=== PATIENT | male | born 1975 | race African-American/Black ===

== ENCOUNTER 2021-02-04 20:54 | Emergency (ER) | payer SELFPAY ==
[~2021-02-04] VITALS: Ht 177.8 cm; Wt 137.0 kg
[2021-02-04 20:57] VITALS: BP 150/90
[2021-02-04] MEDS ORDERED: SODIUM CHLORIDE 0.9% 1,000 ML IV ONE (21:30)
== END 2021-02-04 22:38 | disposition left against medical advice (07) ==
LOC: ER 20:54
DX: F19.10 Other psychoactive substance abuse, uncomplicated (principal); R41.82 Altered mental status, unspecified; E11.9 Type 2 diabetes mellitus without complications
CPT/HCPCS: 99283; J7030